=== PATIENT | male | born 1960 | race Caucasian/White ===

== ENCOUNTER 2016-10-08 15:36 | Emergency (ER) | payer BC ==
[2016-10-08 15:42] VITALS: BP 128/89; PULSE 64; RESP 18; TEMP 98.5
--- NOTE | 2016-10-08 16:14 | ED ---
Lower Extremity Injury HPI - General Chief Complaint: Extremity Injury, Lower Stated Complaint: L foot problem Time Seen by Provider: 10/08/16 15:58 Source: patient, RN notes reviewed Mode of arrival: ambulatory Limitations: no limitations - History of Present Illness Initial Comments: 56-year-old male presents emergency Department chief complaint of stingray bite to the left foot. Patient states this happened a week ago. Patient states he is getting much better but he still was having some pains without that he should be evaluated. There is been no fever chills no cough cold runny nose with this. There is been no nausea or vomiting. They were concerned due to the swelling so they thought that they should be evaluated.Patient denies any recent fever, chills, shortness of breath, chest pain, back pain, abdominal pain , nausea vomiting, numbness or tingling, dysuria or hematuria, constipation or diarrhea, headaches or visual changes, or any other current symptoms. - Related Data Home Medications Medication Instructions Recorded Confirmed Biotin 5 mg PO DAILY 10/08/16 10/08/16 Ciprofloxacin HCl [Cipro] 500 mg PO Q12HR 10/08/16 10/08/16 Cyanocobalamin (Vitamin B-12) 1,000 mcg PO DAILY 10/08/16 10/08/16 [Vitamin B-12] Magnesium 200 mg PO DAILY 10/08/16 10/08/16 Multivitamins, Thera [Multivitamin 1 tab PO DAILY 10/08/16 10/08/16 (formulary)] Ondansetron [Zofran ODT] 4 mg PO Q6HR PRN 10/08/16 10/08/16 Saw [place] 500 mg PO DAILY 10/08/16 10/08/16 oxyCODONE-APAP 5-325MG [Percocet 1 tab PO Q4H PRN 10/08/16 10/08/16 5-325 mg] Allergies Allergy/AdvReac Type Severity Reaction Status Date / Time No Known Allergies Allergy Verified 10/08/16 16:02 Review of Systems ROS Statement: Those systems with pertinent positive or pertinent negative responses have been documented in the HPI. ROS Other: All systems not noted in ROS Statement are negative. Past Medical History Past Medical History: No Reported History History of Any Multi-Drug Resistant Organisms: None Reported Past Surgical History: Tonsillectomy Past Psychological History: No Psychological Hx Reported Smoking Status: Never smoker Past Alcohol Use History: Occasional Past Drug Use History: None Reported General Exam - General Exam Comments Initial Comments: General: The patient is awake and alert, in no distress, and does not appear acutely ill. Neck: The neck is supple, there is no tenderness. Cardiovascular: There is a regular rate and rhythm. No murmur, rub or gallop is appreciated. Respiratory: Lungs are clear to auscultation, respirations are non-labored, breath sounds are equal. No wheezes, stridor, rales, or rhonchi. Musculoskeletal: Sensation intact with 2+ pulses at the left +. Range of motion of the left ankle and left knee. There does appear to be a small injection site in the posterior aspect of the left foot. There is no bony tenderness. Neurological: CN II-XII intact, There are no obvious motor or sensory deficits. Coordination appears grossly intact. Speech is normal. Skin: Skin is warm and dry and no rashes or lesions are noted. Psychiatric: Normal mood and affect. Limitations: no limitations Course Vital Signs 10/08/16 15:39 Temperature 98.5 F Pulse Rate 64 Respiratory 18 Rate Blood Pressure 128/89 O2 Sat by Pulse 96 Oximetry Medical Decision Making - Medical Decision Making 56-year-old male presents for a bee sting to the left ankle glycemic. This time patient does appear to be improving and symptoms. We discussed Motrin Tylenol rest ice elevation. Patient had an x-ray. The hospital per his history. At this time we discussed close follow-up return parameters all questions. Patient stated that he understood and is given plan. Discharged. Disposition Clinical Impression: Contact with stingray as cause of accidental injury Disposition: HOME SELF-CARE Condition: Stable Instructions: Acute Wound Care (ED) Additional Instructions: Please use medication as discussed. Please follow up with family doctor if symptoms have not improved over the next two days. Please return to the emergency room if your symptoms increase or worsen or for any other concerns. Referrals: Tim Diaz MD [Primary Care Provider] - 1-2 days Time of Disposition: 16:14
== END 2016-10-08 16:24 | disposition home or self-care (01) ==
LOC: EC 15:36
DX: T63.441A Toxic effect of venom of bees, accidental (unintentional), initial encounter (principal); Z79.899 Other long term (current) drug therapy
CPT/HCPCS: 99283

== ENCOUNTER 2018-12-25 16:43 | Emergency (ER) | payer BC ==
[2018-12-25] MEDS ORDERED: SODIUM CHLORIDE 0.9% 500 ML 500 ML IV STA (17:08)
[2018-12-25] MEDS ORDERED: SODIUM CHLORIDE 0.9% 1,000 ML IV STA ×2 (17:08)
--- NOTE | 2018-12-25 17:08 | ED ---
Dizziness HPI - General Chief Complaint: Syncope Stated Complaint: Fall, head injury Time Seen by Provider: 12/25/18 16:50 Source: EMS, RN notes reviewed, old records reviewed Mode of arrival: EMS Limitations: no limitations - History of Present Illness Initial Comments: This is a 58-year-old male the ER for evaluation. Patient presents today for multiple issues. Initially patient obligated syncopal event fall backwards on an elliptical he then hit his head which she has a laceration and had seizure- like activity per bystanders. Patient's brought in by EMS for evaluation. Patient complains of headache currently back pain neck pain. No chest pain no shortness of breath no abdominal pain. Recent been feeling fine lately with no acute complaints. Patient has no medical history takes no medications denies drug or alcohol abuse. No prior history of passing out MD Complaint: near syncope (Fall syncopal event with trauma) -: minutes(s) Timing: sudden onset History of Same: No History of Trauma: Yes (Patient did hit his head causing laceration) Severity: severe (For episode of passing out) Worsens With: movement (A she was on the treadmill, elliptical when this happened) - Related Data Home Medications Medication Instructions Recorded Confirmed Fexofenadine/Pseudoephedrine 1 tab PO DAILY 12/25/18 12/25/18 [Genesis-D 24 Hour Tablet] Tadalafil [Cialis] 20 mg PO DAILY PRN 12/25/18 12/25/18 Allergies Allergy/AdvReac Type Severity Reaction Status Date / Time No Known Allergies Allergy Verified 12/25/18 17:48 Review of Systems ROS Statement: Those systems with pertinent positive or pertinent negative responses have been documented in the HPI. ROS Other: All systems not noted in ROS Statement are negative. Past Medical History Past Medical History: No Reported History History of Any Multi-Drug Resistant Organisms: None Reported Past Surgical History: Tonsillectomy Past Psychological History: No Psychological Hx Reported Smoking Status: Never smoker Past Alcohol Use History: Occasional Past Drug Use History: None Reported General Exam Limitations: no limitations General appearance: alert, in no apparent distress Head exam: Present: normocephalic, normal inspection. Absent: atraumatic (Patient does have a 6 cm laceration to his occiput) Eye exam: Present: normal appearance, PERRL, EOMI. Absent: scleral icterus, conjunctival injection, periorbital swelling ENT exam: Present: normal exam, mucous membranes moist Neck exam: Present: normal inspection. Absent: tenderness, meningismus, lymphadenopathy Respiratory exam: Present: normal lung sounds bilaterally. Absent: respiratory distress, wheezes, rales, rhonchi, stridor Cardiovascular Exam: Present: normal rhythm, tachycardia, normal heart sounds. Absent: systolic murmur, diastolic murmur, rubs, gallop, clicks GI/Abdominal exam: Present: soft, normal bowel sounds. Absent: distended, tenderness, guarding, rebound, rigid Extremities exam: Present: normal inspection, full ROM, normal capillary refill. Absent: tenderness, pedal edema, joint swelling, calf tenderness Back exam: Present: normal inspection Neurological exam: Present: alert, oriented X3, CN II-XII intact Psychiatric exam: Present: normal affect, normal mood Skin exam: Present: warm, dry, intact, normal color. Absent: rash Course Vital Signs 12/25/18 16:45 Temperature 98.5 F Pulse Rate 109 H Respiratory 18 Rate Blood Pressure 156/83 O2 Sat by Pulse 93 L Oximetry - Reevaluation(s) Reevaluation #1: 12/25/18 19:31 Medical records reviewed Reevaluation #2: 12/25/18 19:31 Patient is in no acute distress Reevaluation #3: 12/25/18 19:31 Patient remains without significant complaint no recurrent syncope no recurrent seizure EKG Findings - EKG Comments: EKG Findings:: EKG shows sinus tachycardia rate of 104, NM 160, QRS 160, QTc 476 Medical Decision Making - Medical Decision Making 68 male the ER for evaluation. Patient is status post syncopal event leading to fall with head laceration laceration is repaired here in the ER with ailyn patient's awake and alert without any significant play. CT scans are negative. Patient feeling better with hydration, patient can be discharged home - Lab Data Result diagrams: 12/25/18 17:20 12/25/18 17:20 Lab Results 12/25/18 12/25/18 12/25/18 Range/Units 17:20 17:20 17:20 WBC 5.7 (3.8-10.6) k/uL RBC 3.94 L (4.30-5.90) m/uL Hgb 13.5 (13.0-17.5) gm/dL Hct 40.9 (39.0-53.0) % MCV 103.9 H (80.0-100.0) fL MCH 34.2 (25.0-35.0) pg MCHC 32.9 (31.0-37.0) g/dL RDW 13.1 (11.5-15.5) % Plt Count 185 (150-450) k/uL Neutrophils % 73 % Lymphocytes % 16 % Monocytes % 7 % Eosinophils % 1 % Basophils % 1 % Neutrophils # 4.2 (1.3-7.7) k/uL Lymphocytes # 0.9 L (1.0-4.8) k/uL Monocytes # 0.4 (0-1.0) k/uL Eosinophils # 0.1 (0-0.7) k/uL Basophils # 0.1 (0-0.2) k/uL Macrocytosis Slight PT (9.0-12.0) sec INR (<1.2) APTT (22.0-30.0) sec D-Dimer (<0.60) mg/L FEU Sodium 137 (137-145) mmol/L Potassium 4.1 (3.5-5.1) mmol/L Chloride 101 (98-107) mmol/L Carbon Dioxide 15 L (22-30) mmol/L Anion Gap 21 mmol/L BUN 9 (9-20) mg/dL Creatinine 0.92 (0.66-1.25) mg/dL Est GFR (CKD-EPI)AfAm >90 (>60 ml/min/1.73 sqM) Est GFR (CKD-EPI)NonAf >90 (>60 ml/min/1.73 sqM) Glucose 100 H (74-99) mg/dL Plasma Lactic Acid Wilfred (0.7-2.0) mmol/L Calcium 9.6 (8.4-10.2) mg/dL Phosphorus 3.0 (2.5-4.5) mg/dL Magnesium 2.2 (1.6-2.3) mg/dL Total Bilirubin 0.6 (0.2-1.3) mg/dL AST 81 H (17-59) U/L ALT 49 (21-72) U/L Alkaline Phosphatase 53 (38-126) U/L Creatine Kinase 422 H (55-170) U/L CK-MB (CK-2) 3.2 H (0.0-2.4) ng/mL Troponin I <0.012 (0.000-0.034) ng/mL NT-Pro-B Natriuret Pep pg/mL Total Protein 7.4 (6.3-8.2) g/dL Albumin 4.4 (3.5-5.0) g/dL TSH 0.541 (0.465-4.680) mIU/L Salicylates <1.0 mg/dL Acetaminophen <10.0 ug/mL Serum Alcohol 35 mg/dL 12/25/18 12/25/18 12/25/18 Range/Units 17:20 17:20 17:20 WBC (3.8-10.6) k/uL RBC (4.30-5.90) m/uL Hgb (13.0-17.5) gm/dL Hct (39.0-53.0) % MCV (80.0-100.0) fL MCH (25.0-35.0) pg MCHC (31.0-37.0) g/dL RDW (11.5-15.5) % Plt Count (150-450) k/uL Neutrophils % % Lymphocytes % % Monocytes % % Eosinophils % % Basophils % % Neutrophils # (1.3-7.7) k/uL Lymphocytes # (1.0-4.8) k/uL Monocytes # (0-1.0) k/uL Eosinophils # (0-0.7) k/uL Basophils # (0-0.2) k/uL Macrocytosis PT 10.2 (9.0-12.0) sec INR 0.9 (<1.2) APTT 22.5 (22.0-30.0) sec D-Dimer 12.73 H (<0.60) mg/L FEU Sodium (137-145) mmol/L Potassium (3.5-5.1) mmol/L Chloride (98-107) mmol/L Carbon Dioxide (22-30) mmol/L Anion Gap mmol/L BUN (9-20) mg/dL Creatinine (0.66-1.25) mg/dL Est GFR (CKD-EPI)AfAm (>60 ml/min/1.73 sqM) Est GFR (CKD-EPI)NonAf (>60 ml/min/1.73 sqM) Glucose (74-99) mg/dL Plasma Lactic Acid Wilfred 12.0 H* (0.7-2.0) mmol/L Calcium (8.4-10.2) mg/dL Phosphorus (2.5-4.5) mg/dL Magnesium (1.6-2.3) mg/dL Total Bilirubin (0.2-1.3) mg/dL AST (17-59) U/L ALT (21-72) U/L Alkaline Phosphatase (38-126) U/L Creatine Kinase (55-170) U/L CK-MB (CK-2) (0.0-2.4) ng/mL Troponin I (0.000-0.034) ng/mL NT-Pro-B Natriuret Pep 25 pg/mL Total Protein (6.3-8.2) g/dL Albumin (3.5-5.0) g/dL TSH (0.465-4.680) mIU/L Salicylates mg/dL Acetaminophen ug/mL Serum Alcohol mg/dL - Radiology Data Radiology results: report reviewed (CT brain C-spine negative for acute disease CT lumbosacral spine negative for acute disease CTA chest negative for PE), image reviewed Disposition Clinical Impression: Vasovagal syncope, Dehydration, Head injury, Seizure, Fall, Laceration of head Disposition: HOME SELF-CARE Condition: Good Instructions (If sedation given, give patient instructions): Dehydration (ED), Syncope (ED), New-Onset Seizure in Adults (ED), Head Injury (ED) Is patient prescribed a controlled substance at d/c from ED?: No Referrals: Tim Diaz MD [Primary Care Provider] - 1-2 days
[2018-12-25 17:34] LABS: Basophils # (A) 0.1 k/uL (0-0.2); Basophils % (A) 1 %; Eosinophils # (A) 0.1 k/uL (0-0.7); Eosinophils % (A) 1 %; HCT 40.9 % (39.0-53.0); HGB 13.5 gm/dL (13.0-17.5); Lymphocytes # (A) 0.9 k/uL (1.0-4.8); Lymphocytes % (A) 16 %; MCH 34.2 pg (25.0-35.0); MCHC 32.9 g/dL (31.0-37.0); MCV 103.9 fL (80.0-100.0); Macrocytosis Slight; Mean Platelet Volume 6.7; Monocytes # (A) 0.4 k/uL (0-1.0); Monocytes % (A) 7 %; Neutrophils # (A) 4.2 k/uL (1.3-7.7); Neutrophils % (A) 73 %; Platelet Count 185 k/uL (150-450); RBC 3.94 m/uL (4.30-5.90); RDW 13.1 % (11.5-15.5); WBC 5.7 k/uL (3.8-10.6)
[2018-12-25 17:49] LABS: ALT 49 U/L (21-72); AST 81 U/L (17-59); Acetaminophen <10.0 ug/mL; African American GFR (CKD) >90 (>60 ml/min/1.73 sqM); Albumin 4.4 g/dL (3.5-5.0); Alcohol 35 mg/dL; Alkaline Phosphatase 53 U/L (38-126); Anion Gap 21 mmol/L; Blood Urea Nitrogen 9 mg/dL (9-20); Calcium 9.6 mg/dL (8.4-10.2); Carbon Dioxide 15 mmol/L (22-30); Chloride 101 mmol/L (98-107); Creatine Kinase 422 U/L (55-170); Glucose 100 mg/dL (74-99); Magnesium 2.2 mg/dL (1.6-2.3); Potassium 4.1 mmol/L (3.5-5.1); Salicylate <1.0 mg/dL; Sodium 137 mmol/L (137-145); Total Bilirubin 0.6 mg/dL (0.2-1.3); Total Protein 7.4 g/dL (6.3-8.2)
[2018-12-25 17:53] LABS: INR 0.9 (<1.2); Partial Thromboplastin Time 22.5 sec (22.0-30.0); Prothrombin Time 10.2 sec (9.0-12.0)
[2018-12-25 18:00] LABS: Creatine Kinase MB 3.2 ng/mL (0.0-2.4); D-Dimer 12.73 mg/L FEU (<0.60); Troponin I <0.012 ng/mL (0.000-0.034)
--- NOTE | 2018-12-25 18:55 | CT ---
EXAMINATION TYPE: CT lumbar spine wo con DATE OF EXAM: 12/25/2018 6:45 PM COMPARISON: None HISTORY: Pt experienced syncopal episode. Fell off elliptical machine, hitting back of head on equipm ent behind him. Back pain. CT DLP: 1170.6 mGycm Automated exposure control for dose reduction was used. TECHNIQUE: Unenhanced CT of the lumbar spine was performed. Bone and soft tissue window settings are submitted as well as coronal and sagittal reconstructions. FINDINGS: Vertebral bodies of the lumbar spine maintain normal vertebral body heights and alignment. There is some sclerosis of the anterior vertebral body of L5 that is nonspecific. Again there is no v ertebral body height loss. Right laterally this does appear to continue with the endplate and may be degenerative as there is some opposing surface sclerosis of the sacrum. There is also posterior proje cting osteophyte at this level. Multilevel small Schmorl's nodes are seen. Sacroiliac joint spaces ar e symmetric. High density is seen within what is presumed to represent the appendix, only partially visualized. No periappendiceal fat stranding in the visualized portions of the appendix. Low-density of the liver s uggests hepatic steatosis. There is limited evaluation of the spinal canal on CT and limited evaluati on of the discs. L1-L2: There is a broad-based disc bulge without significant neural foraminal narrowing or spinal can al stenosis. L2-L3: There is a broad-based disc bulge and questionable right paracentral small disc herniation karuna earing to create mild spinal canal stenosis and mild bilateral neural foraminal narrowing. This would be better evaluated with MRI. L3-L4: There is a broad-based disc bulge and questionable small left paracentral disc herniation. The re is appearance of mild spinal canal stenosis and mild bilateral neural foraminal narrowing. L4-L5: Broad-based disc bulge is seen resulting in mild bilateral neural foraminal narrowing. L5-S1: Posterior projecting osteophyte and broad-based disc bulge results in mild bilateral foraminal narrowing. IMPRESSION: 1. No acute fracture or malalignment of the lumbar spine. Multilevel degenerative disc disease is see n with questionable small disc herniations at L2-L3 and L3-L4 that would be better evaluated with MRI . No high-grade spinal canal stenosis although mild spinal canal stenosis is questioned at L2-L3 and L3-L4, again better evaluated with MRI. 2. High density within the appendix could represent an appendicolith. In the visualized portions of t he appendix is unremarkable otherwise with no periappendiceal fat stranding or enlargement. 3.
--- NOTE | 2018-12-25 19:01 | CT ---
EXAMINATION TYPE: CT brain luci somers DATE OF EXAM: 12/25/2018 COMPARISON: NONE HISTORY: Pt experienced syncopal episode. Fell off elliptical machine, hitting back of head on equipm ent behind him. Head pain. CT DLP: 1537.5 mGycm. Automated Exposure Control for Dose Reduction was Utilized. TECHNIQUE: CT scan of the head and cervical spine are performed without contrast. FINDINGS: There is no acute intracranial hemorrhage, mass effect, or midline shift identified. The ventricles and sulci are within normal limits in size. The globes are intact. Air-fluid level seen within the right maxillary sinus suggesting acute sinusitis. Remaining visualized paranasal sinuses a re well aerated. Occipital scalp lacerations are seen without well-defined hematoma. Some contusion i s evident in the subcutaneous tissues. Left frontal laceration with small high density 4 mm hematoma is also seen. Cervical spine is visualized in its entirety from C1 through upper thoracic levels and demonstrates s atisfactory alignment without evidence of acute fracture or dislocation. Prevertebral soft tissue ap pears within normal limits. The C1-C2 articulation is unremarkable. There is straightening of usual cervical lordosis that may relate to muscular sprain/spasm or patient positioning. Mild emphysematou s changes are seen in the lung apices. IMPRESSION: 1. There is no acute fracture or dislocation evident in the cervical spine. Straightening of usual ce rvical lordosis may relate to muscular sprain, spasm or patient positioning. 2. No acute intracranial hemorrhage, mass effect, or midline shift is seen. 3. Scalp laceration and contusion of the occipital region and left frontal laceration and 4 mm hemato ma. 4. Findings suggesting acute right maxillary sinusitis.
--- NOTE | 2018-12-25 19:09 | CT ---
EXAMINATION TYPE: CT angio chest DATE OF EXAM: 12/25/2018 COMPARISON: NONE HISTORY: Pt experienced syncopal episode. Fell off elliptical machine, hitting back of head on equipm ent behind him. Elevated d-dimer. Chest pain. CT DLP: 474.6 mGycm. Automated Exposure Control for Dose Reduction was Utilized. CONTRAST: CTA scan of the thorax is performed with IV Contrast, patient injected with 100 mL of Isovue 300, pul monary embolism protocol. MIP Images are created on CT scanner and reviewed. FINDINGS: LUNGS: Mild centrilobular emphysematous change of the lungs. Minimal dependent subsegmental atelectas is. The lungs are grossly clear, there is no concerning parenchymal mass or nodule identified. Ther e is no pleural effusion or pneumothorax seen. The tracheobronchial tree is patent. MEDIASTINUM: There is suboptimal enhancement of the pulmonary artery and its branches, with greater c ontrast in the aorta and within the pulmonary artery. No central pulmonary artery filling defect. Non diagnostic exam of the segmental and subsegmental pulmonary arteries. No dissection is seen of the th oracic aorta nor aneurysm. No significant coronary arteries on contrast CT although coronary artery c alcifications can be obscured by contrast. Very mild strand-like opacity in the superior mediastinum represents residual thymic tissue. There are no greater than 1 cm hilar or mediastinal lymph nodes. No cardiomegaly or pericardial effusion is seen. OTHER: There is diffuse hypoattenuation of the hepatic parenchyma most commonly related to hepatic st eatosis and limiting evaluation for hepatic masses. This appears moderate in degree. There are few no nspecific upper abdominal prominent lymph nodes that do not measure greater than 1 cm in short axis. These surround the hepatic artery, arley hepatis, and are seen within the gastrohepatic ligament. Deformity from prior fracture is seen of the anterior margin of ribs 1 and 2 on the right as well as a lateral margin of ribs 5 through 7 on the right. Mild multilevel degenerative changes of the spine are seen. IMPRESSION: 1. Markedly suboptimal bolus timing. No central pulmonary embolus. Nondiagnostic evaluation of the se gmental and subsegmental pulmonary arteries. No evidence of thoracic aortic dissection nor aneurysm. 2. Mild emphysematous change of the lungs and the dependent subsegmental atelectasis. 3. Hepatic steatosis appears moderate. 4. Nonspecific prominent lymph nodes around the hepatic artery, arley hepatis and in the region of ga stric hepatic ligament. These could be reactive and short-term follow-up could ensure resolution.
[2018-12-25] MEDS ORDERED: KETOROLAC 30 MG/ML 1 ML VIAL IVP STA (19:19)
[2018-12-25] MEDS ORDERED: DIAZEPAM 5 MG/ML 2 ML INJ IVP STA (19:19)
[2018-12-25 20:32] VITALS: BP 123/56; PULSE 82; RESP 20; TEMP 97.9
== END 2018-12-25 20:10 | disposition home or self-care (01) ==
LOC: EC 16:43
DX: S01.01XA Laceration without foreign body of scalp, initial encounter (principal); E86.0 Dehydration; R56.9 Unspecified convulsions; R00.0 Tachycardia, unspecified; M54.2 Cervicalgia; Z79.899 Other long term (current) drug therapy; W01.0XXA Fall on same level from slipping, tripping and stumbling without subsequent striking against object, initial encounter; Y93.B1 Activity, exercise machines primarily for muscle strengthening; Y92.39 Other specified sports and athletic area as the place of occurrence of the external cause
CPT/HCPCS: 36415; 93005; 85379; 83880; 80053; 82550; 82553; 83605; 83735; 84100; 84443; 84484; 85025; 85610; 85730; 83520; 80329; 80320; 72125; 72131; 70450; 71275; 99285; 12002; 96374; 96375; 96361; J3360; J1885; Q9967

== ENCOUNTER 2019-04-06 05:22 | Emergency (ER) | payer BC ==
[2019-04-06 05:31] VITALS: TEMP 98.5
[2019-04-06] MEDS ORDERED: SODIUM CHLORIDE 0.9% 500 ML 500 ML IV STA (05:32)
[2019-04-06 05:33] LABS: Glucose,Whole Blood 137 mg/dL (75-99)
--- NOTE | 2019-04-06 05:33 | ED ---
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 He was witnessed to have some seizure-like activity at that time but no seizure disorder. Patient is brought to the ER today by EMS for evaluation of possible seizure. Per the she heard him having weird snoring respirations so she got up and found him lying in the guest bedroom bed, he had snoring respirations she didn't notice any shaking or tonic-clonic activity but she was unable to wake him so 911 was called. After couple of moments she was able to awaken but he seemed very confused, upon EMS arrival the patient was confused appear to be postictal. No loss of bowel or bladder continence. No tongue biting. Patient has had some recent nausea and decreased by mouth intake no diarrhea. - Related Data Home Medications Medication Instructions Recorded Confirmed Fexofenadine/Pseudoephedrine 1 tab PO DAILY 12/25/18 12/25/18 [Genesis-D 24 Hour Tablet] Tadalafil [Cialis] 20 mg PO DAILY PRN 12/25/18 12/25/18 Allergies Allergy/AdvReac Type Severity Reaction Status Date / Time No Known Allergies Allergy Verified 04/06/19 05:30 Review of Systems ROS Statement: Those systems with pertinent positive or pertinent negative responses have been documented in the HPI. ROS Other: All systems not noted in ROS Statement are negative. Past Medical History Past Medical History: No Reported History Additional Past Medical History / Comment(s): Seizures History of Any Multi-Drug Resistant Organisms: None Reported Past Surgical History: Tonsillectomy Past Psychological History: No Psychological Hx Reported Smoking Status: Never smoker Past Alcohol Use History: Occasional Past Drug Use History: None Reported General Exam - General Exam Comments Initial Comments: Physical Exam GENERAL: Patient is well-developed and well-nourished. Patient is nontoxic and well- hydrated and is in no distress. HENT: Normocephalic, Atraumatic. EYES: PERRL, EOMI PULMONARY: Unlabored respirations. No audible rales rhonchi or wheezing was noted. CARDIOVASCULAR: There is a regular rate and rhythm without any murmurs gallops or rubs. ABDOMEN: Soft and nontender with normal bowel sounds. SKIN: Skin is clear with no lesions or rashes and otherwise unremarkable. : Deferred NEUROLOGIC: Patient is alert and oriented x3 rigid to person, place and date, uncertain of events that happened this morning her leading up to hospitalization Moving all extremities spontaneously NIH is 0 MUSCULOSKELETAL: Normal extremities with adequate strength and full range of motion. No lower extremity swelling or edema. No calf tenderness. PSYCHIATRIC: Normal psychiatric evaluation. Course Vital Signs 04/06/19 05:24 Temperature 98.5 F Pulse Rate 109 H Respiratory 16 Rate Blood Pressure 137/94 O2 Sat by Pulse 96 Oximetry Medical Decision Making - Medical Decision Making The patient was seen and evaluated history is obtained from the patient and at bedside as well as EMS review of medical record Previously healthy 58 her old woman who is had one episode of seizure-like activity after traumatic brain injury. No history of seizure disorder. Was found to have snoring respirations and be minimally responsive but breathing spontaneously by his this morning and upon EMS arrival was noted to appear postictal. Labs and imaging were obtained Labs resulted with significant elevated lactic consistent with a recent seizure CT with no acute traumatic injuries no masses no bleeds. Results were discussed with patient and at bedside who are agreeable to plan for transfer to [facility] for evaluation by neurology as our facility does not have neurology available. Patient care was discussed with Dr. Garcia in at [facility] who accepts transfer. Patient has had no seizure activity while in the emergency department he was not given any empiric antiepileptics as he may undergo EEG testing at [facility] - Lab Data Result diagrams: 04/06/19 05:25 04/06/19 05:25 Lab Results 04/06/19 04/06/19 04/06/19 Range/Units 05:25 05:25 05:25 WBC 5.0 (3.8-10.6) k/uL RBC 4.01 L (4.30-5.90) m/uL Hgb 14.1 (13.0-17.5) gm/dL Hct 42.9 (39.0-53.0) % MCV 106.9 H (80.0-100.0) fL MCH 35.3 H (25.0-35.0) pg MCHC 33.0 (31.0-37.0) g/dL RDW 12.7 (11.5-15.5) % Plt Count 127 L (150-450) k/uL Neutrophils % 65 % Lymphocytes % 18 % Monocytes % 12 % Eosinophils % 1 % Basophils % 1 % Neutrophils # 3.2 (1.3-7.7) k/uL Lymphocytes # 0.9 L (1.0-4.8) k/uL Monocytes # 0.6 (0-1.0) k/uL Eosinophils # 0.1 (0-0.7) k/uL Basophils # 0.1 (0-0.2) k/uL Macrocytosis Moderate Sodium 134 L (137-145) mmol/L Potassium 3.8 (3.5-5.1) mmol/L Chloride 97 L (98-107) mmol/L Carbon Dioxide 13 L (22-30) mmol/L Anion Gap 24 mmol/L BUN 12 (9-20) mg/dL Creatinine 1.15 (0.66-1.25) mg/dL Est GFR (CKD-EPI)AfAm 82 (>60 ml/min/1.73 sqM) Est GFR (CKD-EPI)NonAf 71 (>60 ml/min/1.73 sqM) Glucose 138 H (74-99) mg/dL POC Glucose (mg/dL) (75-99) mg/dL POC Glu Licensed Physical Therapist ID Plasma Lactic Acid Wilfred 13.3 H* (0.7-2.0) mmol/L Calcium 9.5 (8.4-10.2) mg/dL Total Bilirubin 0.9 (0.2-1.3) mg/dL AST 92 H (17-59) U/L ALT 49 (4-49) U/L Alkaline Phosphatase 60 (38-126) U/L Total Protein 7.3 (6.3-8.2) g/dL Albumin 4.4 (3.5-5.0) g/dL Urine Opiates Screen (NotDetected) Ur Oxycodone Screen (NotDetected) Urine Methadone Screen (NotDetected) Ur Propoxyphene Screen (NotDetected) Ur Barbiturates Screen (NotDetected) U Tricyclic Antidepress (NotDetected) Ur Phencyclidine Scrn (NotDetected) Ur Amphetamines Screen (NotDetected) U Methamphetamines Scrn (NotDetected) U Benzodiazepines Scrn (NotDetected) Urine Cocaine Screen (NotDetected) U Marijuana (THC) Screen (NotDetected) 04/06/19 04/06/19 Range/Units 05:25 06:10 WBC (3.8-10.6) k/uL RBC (4.30-5.90) m/uL Hgb (13.0-17.5) gm/dL Hct (39.0-53.0) % MCV (80.0-100.0) fL MCH (25.0-35.0) pg MCHC (31.0-37.0) g/dL RDW (11.5-15.5) % Plt Count (150-450) k/uL Neutrophils % % Lymphocytes % % Monocytes % % Eosinophils % % Basophils % % Neutrophils # (1.3-7.7) k/uL Lymphocytes # (1.0-4.8) k/uL Monocytes # (0-1.0) k/uL Eosinophils # (0-0.7) k/uL Basophils # (0-0.2) k/uL Macrocytosis Sodium (137-145) mmol/L Potassium (3.5-5.1) mmol/L Chloride (98-107) mmol/L Carbon Dioxide (22-30) mmol/L Anion Gap mmol/L BUN (9-20) mg/dL Creatinine (0.66-1.25) mg/dL Est GFR (CKD-EPI)AfAm (>60 ml/min/1.73 sqM) Est GFR (CKD-EPI)NonAf (>60 ml/min/1.73 sqM) Glucose (74-99) mg/dL POC Glucose (mg/dL) 137 H (75-99) mg/dL POC Glu Licensed Physical Therapist ID Michelle Alva Plasma Lactic Acid Wilfred (0.7-2.0) mmol/L Calcium (8.4-10.2) mg/dL Total Bilirubin (0.2-1.3) mg/dL AST (17-59) U/L ALT (4-49) U/L Alkaline Phosphatase (38-126) U/L Total Protein (6.3-8.2) g/dL Albumin (3.5-5.0) g/dL Urine Opiates Screen Not Detected (NotDetected) Ur Oxycodone Screen Not Detected (NotDetected) Urine Methadone Screen Not Detected (NotDetected) Ur Propoxyphene Screen Not Detected (NotDetected) Ur Barbiturates Screen Not Detected (NotDetected) U Tricyclic Antidepress Not Detected (NotDetected) Ur Phencyclidine Scrn Not Detected (NotDetected) Ur Amphetamines Screen Not Detected (NotDetected) U Methamphetamines Scrn Not Detected (NotDetected) U Benzodiazepines Scrn Not Detected (NotDetected) Urine Cocaine Screen Not Detected (NotDetected) U Marijuana (THC) Screen Not Detected (NotDetected) - EKG Data -: EKG Interpreted by Me EKG Comments: EKG was obtained due to tachycardia and possible seizure, EKG was obtained at 5:29 AM, rate is 107 rhythm is sinus tach with incomplete right bundle branch block, normal intervals, ME 136, curious 118, QTC is 469 there is no acute ST elevations or depressions no evidence of acute ischemia or infarction. When this EKG was compared. 2 EKG obtained in December 2018 there is no change in morphology. Disposition Clinical Impression: New onset seizure Disposition: OTHER INSTITUTION NOT DEFINED Condition: Serious Instructions (If sedation given, give patient instructions): Recurrent Seizures in Adults (ED) Is patient prescribed a controlled substance at d/c from ED?: No Referrals: Tim Diaz MD [Primary Care Provider] - 1-2 days - Out of Hospital Transfer - Req. Specs Out of Hospital Transfer - Requested Specifics: Other Emergency Center ([facility])
[2019-04-06 05:40] LABS: Basophils # (A) 0.1 k/uL (0-0.2); Basophils % (A) 1 %; Eosinophils # (A) 0.1 k/uL (0-0.7); Eosinophils % (A) 1 %; HCT 42.9 % (39.0-53.0); HGB 14.1 gm/dL (13.0-17.5); Lymphocytes # (A) 0.9 k/uL (1.0-4.8); Lymphocytes % (A) 18 %; MCH 35.3 pg (25.0-35.0); MCV 106.9 fL (80.0-100.0); Macrocytosis Moderate; Mean Platelet Volume 8.1; Monocytes # (A) 0.6 k/uL (0-1.0); Monocytes % (A) 12 %; Neutrophils # (A) 3.2 k/uL (1.3-7.7); Neutrophils % (A) 65 %; Platelet Count 127 k/uL (150-450); RBC 4.01 m/uL (4.30-5.90); RDW 12.7 % (11.5-15.5)
[2019-04-06 05:49] LABS: Albumin 4.4 g/dL (3.5-5.0); Calcium 9.5 mg/dL (8.4-10.2); Potassium 3.8 mmol/L (3.5-5.1); Total Bilirubin 0.9 mg/dL (0.2-1.3); Total Protein 7.3 g/dL (6.3-8.2)
[2019-04-06] MEDS ORDERED: SODIUM CHLORIDE 0.9% 1,000 ML IV ONE (06:03)
[2019-04-06] MEDS ORDERED: SODIUM CHLORIDE 0.9% 1,000 ML IV SCH (06:15)
[2019-04-06 06:22] LABS: Appearance,Urine Clear (Clear); Bilirubin,Urine Negative (Negative); Blood,Urine Negative (Negative); Color,Urine Yellow; Glucose,Urine (UA) Negative (Negative); Ketones,Urine 2+ (Negative); Leukocyte Esterase,Urine Negative (Negative); Nitrite,Urine Negative (Negative); PH, Urine 5.5 (5.0-8.0); Protein,Urine Trace (Negative); Specific Gravity,Urine 1.013 (1.001-1.035); Urobilinogen,Urine <2.0 mg/dL (<2.0)
--- NOTE | 2019-04-06 06:37 | CT ---
EXAM: CT Head Without Intravenous Contrast CLINICAL HISTORY: ITS.REASON CT Reason: seizure activity TECHNIQUE: Axial computed tomography images of the head/brain without intravenous contrast. CTDI is 49 mGy and DLP is 1079 mGy-cm. This CT exam was performed using one or more of the following dose reduction techniques: automated exposure control, adjustment of the mA and/or kV according to patient size, and/or use of iterative reconstruction technique. COMPARISON: 12/25/18 CT head FINDINGS: Brain: No hemorrhage or mass effect. Ventricles: No hydrocephalus. Mild cerebral volume loss. Bones/joints: Unremarkable. Soft tissues: Unremarkable. Sinuses: Thickening in the right maxillary sinus. Mastoid air cells: Clear. IMPRESSION: No acute hemorrhage, hydrocephalus, or mass effect.
[2019-04-06 06:40] LABS: Amphetamine Screen,Urine Not Detected (NotDetected); Barbiturate Screen,Urine Not Detected (NotDetected); Benzodiazepines Screen,Urine Not Detected (NotDetected); Cocaine Screen,Urine Not Detected (NotDetected); Methadone Screen, Urine Not Detected (NotDetected); Opiate Screen,Urine Not Detected (NotDetected); Oxycodone Screen, Urine Not Detected (NotDetected); Phencyclidine Screen,Urine Not Detected (NotDetected); Tricyclic Antidepressant,Urine Not Detected (NotDetected); Urn Cannabinoid Scrn Not Detected (NotDetected)
[2019-04-06 06:55] VITALS: BP 124/73; PULSE 81; RESP 18
== END 2019-04-06 07:46 | disposition other institution (70) ==
LOC: EC 05:22
DX: R56.9 Unspecified convulsions (principal); R11.0 Nausea; R63.8 Other symptoms and signs concerning food and fluid intake
CPT/HCPCS: 36415; 70450; 80053; 80306; 81003; 83605; 85025; 93005; 96360; 96361; 99285